=== PATIENT | female | born 1960 | race Caucasian/White ===

== ENCOUNTER 2017-11-16 13:48 | Observation (INO) | payer BC ==
[2017-11-16 14:10] LABS: BASOPHIL % 0.3 % (0.0-0.4); Basophil (Absolute #) 0.01 (0-0.4); Eosinophil % 2.2 % (0.00-5.0); Eosinophil (Absolute #) 0.07 (0-0.5); Granulocyte Absolute (ANC) 1.81 (1.4-6.9); Hematocrit 21.7 % (35-47); Lymphocyte (Absolute #) 0.91 (1.0-4.6); Lymphocytes % 29.2 % (24.0-44.0); Mean Cell Volume 76.1 fl (78-100); Mean Corpuscular Hemoglobin 22.1 pg (26-32); Mean Platelet Volume 9.3 fl (6-9.5); Monocyte (Absolute #) 0.32 (0.0-1.3); Monocytes % 10.3 % (0.0-12.0); Platelet Count 426 K/mm3 (150-450); Red Blood Count 2.85 M/mm3 (4.1-5.4); Red Cell Distribution Width 18.2 % (11.5-14.0); White Blood Count 3.1 K/mm3 (4.0-10.5)
[2017-11-16 14:14] LABS: Hemoglobin 6.3 gm/dl (12.0-16.0)
[2017-11-16] MEDS ORDERED: Sodium Chloride 0.9% 1000 ML 1,000 ML ONE (16:03)
[2017-11-16 16:27] LABS: ABO TYPING A; Antibody Screen NEGATIVE (NEGATIVE); RH TYPING NEGATIVE
[2017-11-16] MEDS ORDERED: MEDICATION INTERVENTION MC PRN (17:20)
[2017-11-16] MEDS ORDERED: ceLEXa 20 MG PO SCH (18:00)
[2017-11-16] MEDS: PROTONIX 40 MG IV IV SCH (19:05)
[2017-11-17 05:38] LABS: Hemoglobin 7.9 gm/dl (12.0-16.0)
[2017-11-17] MEDS ORDERED: SYNTHROID 112 MCG PO SCH (06:00)
[2017-11-17] MEDS ORDERED: Lactated Ringers 1,000 ML IV ONE (07:43)
--- NOTE | 2017-11-17 07:43 | HP ---
CHIEF COMPLAINT: Weakness, black tarry stools. HISTORY OF PRESENT ILLNESS: The patient is a 57 year-old white female who reports feeling bad, recently just being weak. She noticed on Thursday however that she became even more weak with passing of some black stools and by this morning she was wobbly and having to hold onto to things to get from point A to point B. The patient presented herself to the outpatient [facility] clinic and a CBC was done. The patient was found to have a hemoglobin of 6.3. She has been admitted to the hospital for transfusion and monitoring. PAST MEDICAL HISTORY: Significant recently taking ibuprofen for a wrist injury that she had four weeks ago. 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 She has been taking fairly large amounts of ibuprofen. PAST SURGICAL HISTORY: Gastric bypass. She had craniopharyngeal adenomas removed three different times. She has hypothyroid. She has depression for which she takes present medications. CURRENT MEDICATIONS: Includes citalopram 10 mg a day, estradiol/norethindrone acet once daily, Synthroid 112 mcg daily, ALLERGIES: NKDA. SOCIAL HISTORY: She is , nonsmoker, works at the hospital. The patient's son has significant problems with schizophrenia and seizure disorder which is a major source of her problems. PHYSICAL EXAMINATION: Revealed a moderately obese white female currently in no distress. HEENT: Normocephalic, atraumatic. Pupils equal round reactive to light. Extraocular movements intact. Oropharynx is pink and moist. NECK: Supple without lymphadenopathy, thyromegaly or JVD. CHEST: Clear to auscultation with good air movement bilaterally. HEART: Regular rate and rhythm without murmurs, rubs or gallops. ABDOMEN: Soft, nontender, nondistended without hepatosplenomegaly or palpable masses. EXTREMITIES: Without clubbing, cyanosis or edema. NEUROLOGIC: The patient is alert and oriented x3. No focal deficits were noted. LAB DATA AND TESTS: Thus far laboratory values have shown hypochromic microcytic indices with hemoglobin of 6.3. She has no other labs presently. ASSESSMENT: A patient with upper GI bleed. The plan is for EGD in the morning. She was placed on IV fluids with IV Protonix and she is getting transfused 2 units of packed red blood cells. She has been asked to not take ibuprofen any longer. We will continue her usual home medications. She can have a clear liquid diet tonight. Upon discharge the patient will be placed on iron as well and we will monitor her blood counts to be sure that she gets back to a normal range.
[2017-11-17] MEDS ORDERED: Lactated Ringers 1,000 ML IV SCH (07:45)
[2017-11-17 08:38] VITALS: PULSE 62
[2017-11-17] MEDS ORDERED: Sodium Chloride 0.9% 500 ML 500 ML IV ONE (09:39)
[2017-11-17] MEDS: PROTONIX 40 MG IV IV SCH (09:47)
[2017-11-17] MEDS ORDERED: NORETHINDRONE ACET PO SCH (10:00)
[2017-11-17] MEDS ORDERED: ESTRADIOL PO SCH (10:00)
--- NOTE | 2017-11-17 10:31 | OP ---
SURGERY DATE/TIME: 11/17/2017 0755 PREOPERATIVE DIAGNOSIS: Blood loss anemia. POSTOPERATIVE DIAGNOSIS: Normal upper endoscopy status post gastric bypass. PROCEDURE: Esophagogastroduodenoscopy. SURGEON: Dr. Leone. ANESTHESIA: Medications were given by the anesthesia department. BRIEF HISTORY: The patient is a 57 year old white female presenting now for endoscopic evaluation. The patient apparently had near syncopal episode and presented to the emergency room and was found to be profoundly anemic with hemoglobin 6.3. The patient reports she has been having black stools. She had been taking a fairly large amount of ibuprofen due to a wrist injury. The patient was felt the need to have endoscopic evaluation. She was given 2 units of blood. Hemoglobin was 7.9 prior to the procedure. The patient was appraised of the risks of the procedure including the risk of perforation, phlebitis, untoward reaction to medication, bleeding and missed lesions. The patient verbalized her understanding and desired to have the procedure performed. DESCRIPTION OF PROCEDURE: The patient was given the medications by the anesthesia department. She had continuous pulse oximetry, ECG monitoring, intermittent blood pressure monitoring and tidal CO2 monitoring during the examination. She was placed in the left lateral decubitus position. A bite block was placed and the flexible Olympus gastroscope was used to intubate the oropharynx. A view of the larynx was obtained and was normal. The scope was easily introduced in the esophagus which was normal throughout its length. There was no gastric remnant left that we could see. There appeared to be a pull up of the duodenum and jejunum to the lower portion of the esophagus. There appeared to be a loop also but we were able to inspect both ends with no evidence of any active bleeding nor evidence of stigmata of recent bleeding. No erosions. No ulcerations were noted. The scope was removed from the patient who tolerated the procedure well. She was sent back to the hospital [facility] in good condition.
[2017-11-17 11:48] VITALS: BP 130/64; O2SAT 98
[2017-11-17 16:23] LABS: Hematocrit 33.1 % (35-47)
[2017-11-17 16:28] LABS: Hemoglobin 10.4 gm/dl (12.0-16.0)
[2017-11-17] MEDS ORDERED: DIPRIVAN 200 MG/20 ML IV ONE (17:04)
[2017-11-17] MEDS ORDERED: Ketamine HCl 50 MG/ML IJ ONE (17:04)
[2017-11-17] MEDS ORDERED: ceLEXa 20 MG PO SCH (22:00)
== END 2017-11-17 17:05 | disposition home or self-care (01) ==
LOC: LAB 13:48 → MED SURG 14:33
PROVIDERS: ADMIT Family Medicine; ATTEND Family Medicine
PROC: 0DJ08ZZ Inspection of Upper Intestinal Tract, Via Natural or Artificial Opening Endoscopic (ICD-10-PCS; principal; 2017-11-17)
DX: D50.0 Iron deficiency anemia secondary to blood loss (chronic) (principal); K92.2 Gastrointestinal hemorrhage, unspecified; E03.9 Hypothyroidism, unspecified; Z98.84 Bariatric surgery status
CPT/HCPCS: 00731; 36415; 36430; 85014; 85018; 85025; 86850; 86900; 86901; 86922; G0378; J2704; P9016; A9270-GY

== ENCOUNTER 2017-11-24 05:46 | Day surgery (SDC) | payer BC ==
[2017-11-24] MEDS ORDERED: Ketamine HCl 50 MG/ML IV ONE (05:47)
[2017-11-24] MEDS ORDERED: DIPRIVAN 200 MG/20 ML IV ONE (05:47)
[2017-11-24] MEDS ORDERED: Lactated Ringers 1,000 ML IV SCH (06:30)
[2017-11-24 09:16] LABS: Hematocrit 36.5 % (35-47); Hemoglobin 11.3 gm/dl (12.0-16.0); Mean Cell Volume 82.2 fl (78-100); Mean Platelet Volume 9.1 fl (6-9.5); Platelet Count 242 K/mm3 (150-450); Red Blood Count 4.44 M/mm3 (4.1-5.4); Red Cell Distribution Width 19.6 % (11.5-14.0); White Blood Count 3.2 K/mm3 (4.0-10.5)
[2017-11-24 09:18] LABS: Mean Corpuscular Hemoglobin 25.4 pg (26-32)
[2017-11-24 10:26] VITALS: BP 129/80; PULSE 51; O2SAT 98
--- NOTE | 2017-11-24 11:17 | OP ---
SURGERY DATE/TIME: 11/24/2017 0800 PREOPERATIVE DIAGNOSIS: Blood loss anemia. POSTOPERATIVE DIAGNOSIS: Normal colon. PROCEDURE: Colonoscopy. SURGEON: Dr. Leone. ANESTHESIA: MAC. Medications given by anesthesia department. HISTORY: The patient is a 57 year-old white female who was having black tarry stools. She presented to the emergency room and was found to have a hemoglobin in the low 6's. She was transfused. She had an upper GI endoscopic performed which was essentially normal status post gastric bypass surgery. The patient was felt the need to have colonoscopic evaluation. She was appraised of the risks of the procedure including the risk of perforation, phlebitis, untoward reaction to medication, bleeding and missed lesions. The patient verbalized her understanding and desired to have the procedure performed. DESCRIPTION OF PROCEDURE: The patient was given the medications by the anesthesia department. She had continuous pulse oximetry, ECG monitoring, intermittent blood pressure monitoring and tidal CO2 monitoring during the examination. She was placed in the left lateral decubitus position. A digital rectal examination was performed and revealed normal anal sphincter tone and no masses. The flexible Olympus pediatric colonoscope was used to intubate the rectum. A view of the colon was developed sequentially to the cecum including a short distance into the terminal ileum. Upon insertion and withdrawal, including a retroflex view in the rectum, no mucosal lesions were encountered. The scope was removed from the patient who tolerated the procedure well and was sent back to OP recovery in good condition. The prep was noted to be good.
[2017-11-24] MEDS ORDERED: Lactated Ringers 1,000 ML IV ONE (12:39)
== END 2017-11-24 10:00 | disposition home or self-care (01) ==
LOC: SDC 05:46
PROVIDERS: ATTEND Family Medicine
PROC: 0DJD8ZZ Inspection of Lower Intestinal Tract, Via Natural or Artificial Opening Endoscopic (ICD-10-PCS; principal; 2017-11-24)
DX: D50.0 Iron deficiency anemia secondary to blood loss (chronic) (principal); Z98.84 Bariatric surgery status; Z79.899 Other long term (current) drug therapy
CPT/HCPCS: 00812; 36415; 85027; J2704

== ENCOUNTER 2018-09-08 18:36 | Emergency (ER) | payer BC ==
--- NOTE | 2018-09-08 19:38 | ERPHSYRPT ---
- History of Present Illness Time Seen by Provider: 09/08/18 19:21 Source: patient Exam Limitations: no limitations Patient Subjective Stated Complaint: Headache for about a week, hx of pitutary tumor Triage Nursing Assessment: Pt c/o of having a headache for over a week, hx of pitutary tumor, BP 146/89, no difficulties with strength, denies N&V, denies losing consciousness, left eye pain, painful to palpate, denies any other problems at this time Physician History: 58-year-old white female she arrives with complaint of left eye pain for a week she also states that she's felt congested she's had some tenderness in the frontal and maxillary sinuses especially on the left. She has no fevers no vomiting no diarrhea. Past medical history includes hypothyroidism, arthritis, depression, kidney stones, anemia. Patient did have a history of a pituitary adenoma which was resected in the past. Past medical history includes gastric bypass, pituitary adenoma, Timing/Duration: week(s) (one week) Severity: moderate Modifying Factors: Improves With: nothing Associated Symptoms: other (nasal congestion, left eye pain, tenderness in the left maxillary and frontal sinus), No nausea, No vomiting, No abdominal pain, No shortness of breath, No heartburn, No diaphoresis, No cough, No chills, No chest pain, No fever, No headaches, No loss of appetite, No malaise, No rash, No syncope, No seizure, No weakness Allergies/Adverse Reactions: nitrofurantoin [From Macrobid] Allergy (Verified 09/08/18 19:00) Penicillins Allergy (Verified 09/08/18 19:00) pentazocine [From Talwin] Allergy (Verified 09/08/18 19:00) silver nitrate Allergy (Verified 09/08/18 19:00) Home Medications: Citalopram Hydrobromide [Citalopram HBr] 10 mg PO DAILY 11/16/17 [History] Levothyroxine Sodium [Synthroid] 112 mcg PO 0600 11/16/17 [History] Omeprazole 20 MG [Prilosec 20 mg] 20 mg PO DAILY PRN 09/08/18 [History] - Review of Systems Constitutional: No Fever, No Chills Eyes: No Symptoms, Eye Pain (Left eye pain) Ears, Nose, & Throat: Nose Congestion, Other (tenderness in left maxillary and frontal sinus), No Ear Pain, No Ear Discharge, No Hearing Changes, No Tinnitus, No Nose Pain, No Nose Discharge, No Sinus Drainage, No Epistaxis, No Mouth Pain , No Mouth Swelling, No Loose Teeth, No Throat Pain, No Throat Swelling, No Hoarse, No Painful Swallowing, No Snoring, No Stridor Respiratory: No Cough, No Dyspnea Cardiac: No Chest Pain, No Edema, No Syncope Abdominal/Gastrointestinal: No Abdominal Pain, No Nausea, No Vomiting, No Diarrhea Genitourinary Symptoms: No Dysuria Musculoskeletal: No Back Pain, No Neck Pain Skin: No Rash Neurological: Other (tenderness left maxillary and frontal region), No Dizziness , No Focal Weakness, No Sensory Changes Psychological: No Symptoms Endocrine: No Symptoms All Other Systems: Reviewed and Negative - Past Medical History Pertinent Past Medical History: Yes Neurological History: No Pertinent History ENT History: No Pertinent History Cardiac History: Other Respiratory History: No Pertinent History Endocrine Medical History: Hypothyroidism Musculoskeletal History: Arthritis GI Medical History: No Pertinent History History: Other Psycho-Social History: Depression Female Reproductive Disorders: No Pertinent History Other Medical History: KIDNEY STONE, ANEMIA - Past Surgical History Past Surgical History: Yes Neuro Surgical History: No Pertinent History Cardiac: No Pertinent History Respiratory: No Pertinent History Gastrointestinal: Other Genitourinary: No Pertinent History Musculoskeletal: Orthopedic Surgery Female Surgical History: No Pertinent History Other Surgical History: GASTRIC BYPASS, 3 PITUITARY ADNOMA - Social History Smoking Status: Former smoker Exposure to second hand smoke: No Drug Use: none Patient Lives Alone: No - Female History Hx Now: No - Nursing Vital Signs Nursing Vital Signs: Initial Vital Signs Temperature 98.4 F 09/08/18 18:50 Pulse Rate 63 09/08/18 18:50 Blood Pressure 146/89 09/08/18 18:50 O2 Sat by Pulse Oximetry 100 09/08/18 18:50 Pain Scale Pain Intensity 3 - Physical Exam General Appearance: no apparent distress, alert Eye Exam: PERRL/EOMI, eyes nml inspection, other (fundi are unremarkable globes are soft) Ears, Nose, Throat Exam: TMs normal, moist mucous membranes, other (tenderness with percussion left frontal and maxillary sinuses), No TM abnormal (R), No TM abnormal (L) Neck Exam: normal inspection, non-tender, supple, full range of motion Respiratory Exam: normal breath sounds, lungs clear, No respiratory distress Cardiovascular Exam: regular rate/rhythm, normal heart sounds, normal peripheral pulses Gastrointestinal/Abdomen Exam: soft, normal bowel sounds, No tenderness, No mass Back Exam: normal inspection, normal range of motion, No CVA tenderness, No vertebral tenderness Extremity Exam: normal inspection, normal range of motion, pelvis stable Neurologic Exam: alert, oriented x 3, cooperative, enterprise application analyst II-XII nml as tested, normal mood/affect, nml cerebellar function, nml station & gait, sensation nml, No motor deficits Skin Exam: normal color, warm, dry, No rash SpO2 Interpretation: normal (100%) SpO2: 100 Oxygen Delivery: Room Air - Course Nursing assessment & vital signs reviewed: Yes Ordered Tests: Active Orders 24 hr Category Date Time Status Visual Acuity STAT Care 09/08/18 19:31 Active - Progress Progress: improved Progress Note: 09/08/18 19:35 58-year-old white female states that she's had some tenderness on her left eye for approximately a week no vision changes she does have some tenderness with percussion in the left frontal and maxillary region. On physical examination patient with demonstratable tenderness with percussion left frontal and maxillary sinuses eyes PERRLA EOMI fundi are unremarkable globes are soft. patient's conjunctiva are not inflameed, sclera are white, no foreign bodies. Patient with a sinusitis. Patient does have a history of pituitary adenoma however she is really not complaining of a severe headache it is more sinus pain and some left eye pain. Patient sees Dr. Woodard the clinical research physician in [facility] I have advised the patient to follow-up with Dr. Woodard tomorrow. For further workup of her eye Will obtain a vision exam on this patient. Will place patient on Zithromax. Patient states she does get these sinus infections from time to time she usually does well with Zithromax she does not want any pain medications. 09/08/18 19:40 patient's vision exam corrected, Both eyes 20/20. Left eye 20/20. Right eye 20/30. 09/08/18 19:41 - Departure Time of Disposition: 19:40 Departure Disposition: Home Clinical Impression: Left eye pain, History of pituitary adenoma Sinusitis Qualifiers: Sinusitis location: frontal Chronicity: acute Recurrence: not specified as recurrent Qualified Code(s): J01.10 - Acute frontal sinusitis, unspecified Condition: Fair Critical Care Time: No Referrals: ANURAG BENITEZ [Primary Care Provider] - Additional Instructions: Return home. Zithromax Z-GABRIEL as directed. Tylenol every 4 hours as needed for pain. Follow-up with Dr. Woodard (your clinical research physician) tomorrow call first thing in the morning to schedule an appointment. Return for acute distress or for severe symptoms Prescriptions: Azithromycin 250 mg [Zithromax 250 MG TABLET] 0 mg PO ZPACK #6 tablet
[2018-09-08 19:54] VITALS: BP 153/84; PULSE 59; O2SAT 99
== END 2018-09-08 20:05 | disposition home or self-care (01) ==
LOC: ED 18:36
DX: H57.12 Ocular pain, left eye (principal); J32.9 Chronic sinusitis, unspecified; Z86.39 Personal history of other endocrine, nutritional and metabolic disease
CPT/HCPCS: 99283

== ENCOUNTER 2019-03-02 08:20 | Observation (INO) | payer BC ==
[2019-03-02] MEDS ORDERED: Sodium Chloride 0.9% 1000 ML 1,000 ML IV STA (08:33)
[2019-03-02] MEDS ORDERED: Sodium Chloride 0.9% 1000 ML 1,000 ML ONE (08:45)
[2019-03-02 08:56] LABS: ALBUMIN 3.8 g/dL (3.5-5.0); ALKALINE PHOSPHATASE 61 U/L (38-126); BLOOD UREA NITROGEN 43 mg/dL (7-17); CHLORIDE 105 mmol/L (98-107); Carbon Dioxide 22 mmol/L (22-30); Creatinine 1 0.84 mg/dL (0.52-1.04); Glucose 93 mg/dL (74-106); Potassium 4.3 mmol/L (3.5-5.1); SGOT/AST 26 U/L (14-36); SGPT/ALT 18 U/L (0-35); SODIUM 138 mmol/L (137-145); Total Protein 6.4 g/dL (6.3-8.2)
[2019-03-02 09:04] LABS: Appearance CLEAR (CLEAR); Bacteria RARE /HPF (NEGATIVE); Bilirubin NEGATIVE (NEGATIVE); Blood NEGATIVE Ery/ul (0-5); Epithelial Cells RARE /HPF (FEW); Glucose NEGATIVE (NEGATIVE); Ketones NEGATIVE (NEGATIVE); Leukocyte Esterase MODERATE (NEGATIVE); Mucus SLIGHT /HPF (NEGATIVE); Nitrite NEGATIVE (NEGATIVE); Protein,Urine Dip NEGATIVE (Negative); RBC 0-2 /HPF (0-2); Specific Gravity 1.023 (1.005-1.025); Urobilinogen NEGATIVE mg/dL (0-1)
[2019-03-02 09:07] LABS: BASOPHIL % 0.4 % (0.0-0.4); Basophil (Absolute #) 0.02 (0-0.4); Eosinophil % 2.7 % (0.00-5.0); Eosinophil (Absolute #) 0.13 (0-0.5); Granulocyte Absolute (ANC) 3.07 (1.4-6.9); Hematocrit 34.1 % (35-47); Hemoglobin 10.9 gm/dl (12.0-16.0); Lymphocyte (Absolute #) 1.22 (1.0-4.6); Lymphocytes % 25.4 % (24.0-44.0); Mean Cell Volume 97.7 fl (78-100); Mean Corpuscular Hemoglobin 31.2 pg (26-32); Mean Platelet Volume 9.9 fl (6-9.5); Monocyte (Absolute #) 0.36 (0.0-1.3); Monocytes % 7.5 % (0.0-12.0); Platelet Count 297 K/mm3 (150-450); Red Blood Count 3.49 M/mm3 (4.1-5.4); Red Cell Distribution Width 12.8 % (11.5-14.0); White Blood Count 4.8 K/mm3 (4.0-10.5)
--- NOTE | 2019-03-02 09:41 | ERPHSYRPT ---
- History of Present Illness Historian: patient Exam Limitations: no limitations Patient Subjective Stated Complaint: Pt states "I passed 3 black tarry stools this morning." Triage Nursing Assessment: Pt presented alert and oriented X 3, skin pwd. PT ambulates with a hunched over gait, able to speak in clear full sentences. Pt in no apparent respiratory distress. Physician History: Pt is a 58 y/o female with h/o GI bleed, that presented to the ED with 3 BMs that were melanotic, this AM. Pt has some nausea, but no vomiting or abdominal pain. No F/C/S. No SOB or cough. No chest pain or palpitations. Timing/Duration: today Activities at Onset: none Pain Radiation: no radiation Severity of Pain-Max: none Severity of Pain-Current: none Modifying Factors: Improves With: nothing, other (Pt is using Naproxen for pain. ) Associated Symptoms: nausea Previous symptoms: same symptoms as today Allergies/Adverse Reactions: nitrofurantoin [From Macrobid] Allergy (Verified 09/08/18 19:00) Penicillins Allergy (Verified 09/08/18 19:00) pentazocine [From Talwin] Allergy (Verified 09/08/18 19:00) silver nitrate Allergy (Verified 09/08/18 19:00) Home Medications: Citalopram Hydrobromide [Citalopram HBr] 10 mg PO DAILY 11/16/17 [History] Levothyroxine Sodium [Synthroid] 112 mcg PO 0600 11/16/17 [History] Omeprazole 20 MG [Prilosec 20 mg] 20 mg PO DAILY PRN 09/08/18 [History] Hx Tetanus, Diphtheria Vaccination/Date Given: No Hx Influenza Vaccination/Date Given: No Hx Pneumococcal Vaccination/Date Given: No Immunizations Up to Date: Yes - Review of Systems Constitutional: No Fever, No Chills Eyes: No Symptoms Ears, Nose, & Throat: No Symptoms Respiratory: No Cough, No Dyspnea Cardiac: No Chest Pain, No Edema, No Syncope Abdominal/Gastrointestinal: Melena, No Abdominal Pain, No Nausea, No Vomiting, No Diarrhea Genitourinary Symptoms: No Dysuria Musculoskeletal: No Back Pain, No Neck Pain Neurological: No Dizziness, No Focal Weakness, No Sensory Changes Psychological: No Symptoms - Past Medical History Pertinent Past Medical History: Yes Neurological History: No Pertinent History ENT History: No Pertinent History Cardiac History: Other Respiratory History: No Pertinent History Endocrine Medical History: Hypothyroidism Musculoskeletal History: Arthritis GI Medical History: No Pertinent History History: Other Psycho-Social History: Depression Female Reproductive Disorders: No Pertinent History Other Medical History: KIDNEY STONE, ANEMIA - Past Surgical History Past Surgical History: Yes Neuro Surgical History: No Pertinent History Cardiac: No Pertinent History Respiratory: No Pertinent History Gastrointestinal: Other Genitourinary: No Pertinent History Musculoskeletal: Orthopedic Surgery Female Surgical History: No Pertinent History Other Surgical History: GASTRIC BYPASS, 3 PITUITARY ADNOMA - Social History Smoking Status: Former smoker Exposure to second hand smoke: No Drug Use: none Patient Lives Alone: No - Female History Hx Now: No - Nursing Vital Signs Nursing Vital Signs: Initial Vital Signs Temperature 97.7 F 03/02/19 08:25 Pulse Rate 74 03/02/19 08:25 Respiratory Rate 16 03/02/19 08:25 Blood Pressure 115/69 03/02/19 08:25 O2 Sat by Pulse Oximetry 98 03/02/19 08:25 Pain Scale Pain Intensity 0 - Physical Exam General Appearance: no apparent distress, alert Eye Exam: PERRL/EOMI, eyes nml inspection Ears, Nose, Throat Exam: normal ENT inspection, pharynx normal, moist mucous membranes Neck Exam: normal inspection, non-tender, supple, full range of motion Respiratory Exam: normal breath sounds, lungs clear, No respiratory distress Cardiovascular Exam: regular rate/rhythm, normal heart sounds Gastrointestinal/Abdomen Exam: soft, No tenderness, No mass Back Exam: normal inspection, normal range of motion, No CVA tenderness, No vertebral tenderness Extremity Exam: normal inspection, normal range of motion, pelvis stable Neurologic Exam: alert, oriented x 3, cooperative, normal mood/affect, nml cerebellar function, sensation nml, No motor deficits SpO2: 98 - Course Nursing assessment & vital signs reviewed: Yes Ordered Tests: Active Orders 24 hr Category Date Time Status CBC W DIFF Stat Lab 03/02/19 08:43 Completed CMP Stat Lab 03/02/19 08:43 Completed Occult Blood, Other Screening Stat Lab 03/02/19 08:38 Completed UA W/RFX UR CULTURE Stat Lab 03/02/19 08:38 Completed Medication Summary Discontinued Medications Generic Name Dose Route Start Last Admin Trade Name Freq PRN Reason Stop Dose Admin Sodium Chloride 1,000 mls @ 999 mls/hr 03/02/19 08:33 03/02/19 08:46 Sodium Chloride 0.9% 1000 Ml IV 03/02/19 09:33 999 mls/hr .Q1H1M STA Administration Sodium Chloride Confirm 03/02/19 08:45 Sodium Chloride 0.9% 1000 Ml Administered 03/02/19 08:46 Dose 1,000 mls @ ud .ROUTE .STK-MED ONE Lab/Rad Data: Laboratory Result Diagrams 03/02/19 08:43 03/02/19 08:43 Laboratory Results 03/02/19 03/02/19 03/02/19 Range/Units 08:43 08:43 08:38 WBC 4.8 (4.0-10.5) K/mm3 RBC 3.49 L (4.1-5.4) M/mm3 Hgb 10.9 L (12.0-16.0) gm/dl Hct 34.1 L (35-47) % MCV 97.7 (78-100) fl MCH 31.2 (26-32) pg MCHC 32.0 (32-36) g/dl RDW 12.8 (11.5-14.0) % Plt Count 297 (150-450) K/mm3 MPV 9.9 H (6-9.5) fl Gran % 64.0 (36.0-66.0) % Eos # (Auto) 0.13 (0-0.5) Absolute Lymphs (auto) 1.22 (1.0-4.6) Absolute Monos (auto) 0.36 (0.0-1.3) Lymphocytes % 25.4 (24.0-44.0) % Monocytes % 7.5 (0.0-12.0) % Eosinophils % 2.7 (0.00-5.0) % Basophils % 0.4 (0.0-0.4) % Absolute Granulocytes 3.07 (1.4-6.9) Basophils # 0.02 (0-0.4) Sodium 138 (137-145) mmol/L Potassium 4.3 (3.5-5.1) mmol/L Chloride 105 (98-107) mmol/L Carbon Dioxide 22 (22-30) mmol/L Anion Gap 16.0 H (5-15) MEQ/L BUN 43 H (7-17) mg/dL Creatinine 0.84 (0.52-1.04) mg/dL Estimated GFR > 60.0 ML/MIN Glucose 93 (74-106) mg/dL Calcium 9.0 (8.4-10.2) mg/dL Total Bilirubin 0.40 (0.2-1.3) mg/dL AST 26 (14-36) U/L ALT 18 (0-35) U/L Alkaline Phosphatase 61 (38-126) U/L Serum Total Protein 6.4 (6.3-8.2) g/dL Albumin 3.8 (3.5-5.0) g/dL Urine Color YELLOW (YELLOW) Urine Appearance CLEAR (CLEAR) Urine pH 5.0 (5-6) Ur Specific [place] 1.023 (1.005-1.025) Urine Protein NEGATIVE (Negative) Urine Ketones NEGATIVE (NEGATIVE) Urine Blood NEGATIVE (0-5) Patel/ul Urine Nitrite NEGATIVE (NEGATIVE) Urine Bilirubin NEGATIVE (NEGATIVE) Urine Urobilinogen NEGATIVE (0-1) mg/dL Ur Leukocyte Esterase MODERATE (NEGATIVE) Urine WBC (Auto) 11-15 (0-5) /HPF Urine RBC (Auto) 0-2 (0-2) /HPF U Epithel Cells (Auto) RARE (FEW) /HPF Urine Bacteria (Auto) RARE (NEGATIVE) /HPF Urine Mucus (Auto) SLIGHT (NEGATIVE) /HPF Urine Culture Reflexed NO (NO) Urine Glucose NEGATIVE (NEGATIVE) mg/dL Stool Occult Blood (Negative) 03/02/19 Range/Units 08:38 WBC (4.0-10.5) K/mm3 RBC (4.1-5.4) M/mm3 Hgb (12.0-16.0) gm/dl Hct (35-47) % MCV (78-100) fl MCH (26-32) pg MCHC (32-36) g/dl RDW (11.5-14.0) % Plt Count (150-450) K/mm3 MPV (6-9.5) fl Gran % (36.0-66.0) % Eos # (Auto) (0-0.5) Absolute Lymphs (auto) (1.0-4.6) Absolute Monos (auto) (0.0-1.3) Lymphocytes % (24.0-44.0) % Monocytes % (0.0-12.0) % Eosinophils % (0.00-5.0) % Basophils % (0.0-0.4) % Absolute Granulocytes (1.4-6.9) Basophils # (0-0.4) Sodium (137-145) mmol/L Potassium (3.5-5.1) mmol/L Chloride (98-107) mmol/L Carbon Dioxide (22-30) mmol/L Anion Gap (5-15) MEQ/L BUN (7-17) mg/dL Creatinine (0.52-1.04) mg/dL Estimated GFR ML/MIN Glucose (74-106) mg/dL Calcium (8.4-10.2) mg/dL Total Bilirubin (0.2-1.3) mg/dL AST (14-36) U/L ALT (0-35) U/L Alkaline Phosphatase (38-126) U/L Serum Total Protein (6.3-8.2) g/dL Albumin (3.5-5.0) g/dL Urine Color (YELLOW) Urine Appearance (CLEAR) Urine pH (5-6) Ur Specific [place] (1.005-1.025) Urine Protein (Negative) Urine Ketones (NEGATIVE) Urine Blood (0-5) Patel/ul Urine Nitrite (NEGATIVE) Urine Bilirubin (NEGATIVE) Urine Urobilinogen (0-1) mg/dL Ur Leukocyte Esterase (NEGATIVE) Urine WBC (Auto) (0-5) /HPF Urine RBC (Auto) (0-2) /HPF U Epithel Cells (Auto) (FEW) /HPF Urine Bacteria (Auto) (NEGATIVE) /HPF Urine Mucus (Auto) (NEGATIVE) /HPF Urine Culture Reflexed (NO) Urine Glucose (NEGATIVE) mg/dL Stool Occult Blood POSITIVE A (Negative) - Progress Progress: unchanged Progress Note: 03/02/19 09:39 Pt had labs done, and stool checked for heme. Pt had elevated BUN, and stool positive for heme. Her Hgb was reduced 10 10.9. Pt states, she is using Naproxen for pain. Secondary to GI bleed, Dr Ruiz was contacted, and she accepted the pt for obs, and to be scopped by Dr Leone. Will see patient in: hospital (observation) - Departure Departure Disposition: Observation Clinical Impression: GI bleed due to NSAIDs Condition: Stable Critical Care Time: No Referrals: ANURAG LEONE [Primary Care Provider] -
[2019-03-02] MEDS ORDERED: Zofran 4 MG/2 ML VIAL IV PRN (09:42)
[2019-03-02] MEDS: PROTONIX 40 MG IV*** 80 MG in Sodium Chloride 0.9% 500 ML 500 ML IV SCH ×2 (11:04→20:56)
[2019-03-02] MEDS: Sodium Chloride 0.9% 1000 ML 1,000 ML IV SCH ×2 (13:36→23:43)
--- NOTE | 2019-03-02 14:29 | PCM.NOTE ---
Date and Time: 03/02/19 141 Subjective Assessment: Patient is a 58 year old female with a history of Bariatric Surgery 2013 who presented to ER with c/o 3 black tarry stools this morning. She was feeling fine yesterday .Enjoyed a nice dinner out last night .Denies indigestion or abdominal pain or nausea or vomiting or diarrhea or constipation. When she got up for work this morning, she felt weak and dizzy. She had 3 black tarry stools between 6am and 7am today. She had been taking Naprosyn for mid back pain all week,attributes the pain to her work chair pillow. She has been off her Omeprazole . Hx of GI bleed requiring tansfusion about a year ago. Patient states upper and lower scopes by Dr Leone at that time did not find a bleed . Last year before she had the GI bleed she had been on Advil for wrist pain . Objective Exam Neurologic Exam: alert, oriented x 3 Skin Exam: warm, dry, pale (no diaphoresis) Eye Exam: PERRL, EOMI Respiratory Exam: normal breath sounds, lungs clear Cardiovascular Exam: regular rate/rhythm (no murmur) Gastrointestinal/Abdomen Exam: soft (increased bowel sounds LLQ,nontender no guarding no rebound) Extremity Exam: normal inspection (no edema) OBJECTIVE DATA Vital Signs: Vital Signs - 24 hr Temp Pulse Resp BP Pulse Ox 03/02/19 12:00 67 18 117/61 98 03/02/19 11:54 98.0 F 67 18 117/61 98 03/02/19 09:41 98 03/02/19 09:34 97.6 F 58 L 16 104/66 98 03/02/19 08:25 97.7 F 74 16 115/69 98 Pain Assessment - Last Documented Pain Intensity 0 Pain Scale Used 0-10 Pain Scale Intake and Output: Intake & Output 02/28/19 03/01/19 03/02/19 03/03/19 11:59 11:59 11:59 11:59 Weight 86.6 kg Lab Results: Lab Results-Last 24 Hours 03/02/19 03/02/19 03/02/19 Range/Units 08:38 08:38 08:43 WBC 4.8 (4.0-10.5) K/mm3 RBC 3.49 L (4.1-5.4) M/mm3 Hgb 10.9 L (12.0-16.0) gm/dl Hct 34.1 L (35-47) % MCV 97.7 (78-100) fl MCH 31.2 (26-32) pg MCHC 32.0 (32-36) g/dl RDW 12.8 (11.5-14.0) % Plt Count 297 (150-450) K/mm3 MPV 9.9 H (6-9.5) fl Gran % 64.0 (36.0-66.0) % Eos # (Auto) 0.13 (0-0.5) Absolute Lymphs (auto) 1.22 (1.0-4.6) Absolute Monos (auto) 0.36 (0.0-1.3) Lymphocytes % 25.4 (24.0-44.0) % Monocytes % 7.5 (0.0-12.0) % Eosinophils % 2.7 (0.00-5.0) % Basophils % 0.4 (0.0-0.4) % Absolute Granulocytes 3.07 (1.4-6.9) Basophils # 0.02 (0-0.4) Sodium (137-145) mmol/L Potassium (3.5-5.1) mmol/L Chloride (98-107) mmol/L Carbon Dioxide (22-30) mmol/L Anion Gap (5-15) MEQ/L BUN (7-17) mg/dL Creatinine (0.52-1.04) mg/dL Estimated GFR ML/MIN Glucose (74-106) mg/dL Calcium (8.4-10.2) mg/dL Total Bilirubin (0.2-1.3) mg/dL AST (14-36) U/L ALT (0-35) U/L Alkaline Phosphatase (38-126) U/L Serum Total Protein (6.3-8.2) g/dL Albumin (3.5-5.0) g/dL Urine Color YELLOW (YELLOW) Urine Appearance CLEAR (CLEAR) Urine pH 5.0 (5-6) Ur Specific [place] 1.023 (1.005-1.025) Urine Protein NEGATIVE (Negative) Urine Ketones NEGATIVE (NEGATIVE) Urine Blood NEGATIVE (0-5) Patel/ul Urine Nitrite NEGATIVE (NEGATIVE) Urine Bilirubin NEGATIVE (NEGATIVE) Urine Urobilinogen NEGATIVE (0-1) mg/dL Ur Leukocyte Esterase MODERATE (NEGATIVE) Urine WBC (Auto) 11-15 (0-5) /HPF Urine RBC (Auto) 0-2 (0-2) /HPF U Epithel Cells (Auto) RARE (FEW) /HPF Urine Bacteria (Auto) RARE (NEGATIVE) /HPF Urine Mucus (Auto) SLIGHT (NEGATIVE) /HPF Urine Culture Reflexed NO (NO) Urine Glucose NEGATIVE (NEGATIVE) mg/dL Stool Occult Blood POSITIVE A (Negative) 03/02/19 Range/Units 08:43 WBC (4.0-10.5) K/mm3 RBC (4.1-5.4) M/mm3 Hgb (12.0-16.0) gm/dl Hct (35-47) % MCV (78-100) fl MCH (26-32) pg MCHC (32-36) g/dl RDW (11.5-14.0) % Plt Count (150-450) K/mm3 MPV (6-9.5) fl Gran % (36.0-66.0) % Eos # (Auto) (0-0.5) Absolute Lymphs (auto) (1.0-4.6) Absolute Monos (auto) (0.0-1.3) Lymphocytes % (24.0-44.0) % Monocytes % (0.0-12.0) % Eosinophils % (0.00-5.0) % Basophils % (0.0-0.4) % Absolute Granulocytes (1.4-6.9) Basophils # (0-0.4) Sodium 138 (137-145) mmol/L Potassium 4.3 (3.5-5.1) mmol/L Chloride 105 (98-107) mmol/L Carbon Dioxide 22 (22-30) mmol/L Anion Gap 16.0 H (5-15) MEQ/L BUN 43 H (7-17) mg/dL Creatinine 0.84 (0.52-1.04) mg/dL Estimated GFR > 60.0 ML/MIN Glucose 93 (74-106) mg/dL Calcium 9.0 (8.4-10.2) mg/dL Total Bilirubin 0.40 (0.2-1.3) mg/dL AST 26 (14-36) U/L ALT 18 (0-35) U/L Alkaline Phosphatase 61 (38-126) U/L Serum Total Protein 6.4 (6.3-8.2) g/dL Albumin 3.8 (3.5-5.0) g/dL Urine Color (YELLOW) Urine Appearance (CLEAR) Urine pH (5-6) Ur Specific [place] (1.005-1.025) Urine Protein (Negative) Urine Ketones (NEGATIVE) Urine Blood (0-5) Patel/ul Urine Nitrite (NEGATIVE) Urine Bilirubin (NEGATIVE) Urine Urobilinogen (0-1) mg/dL Ur Leukocyte Esterase (NEGATIVE) Urine WBC (Auto) (0-5) /HPF Urine RBC (Auto) (0-2) /HPF U Epithel Cells (Auto) (FEW) /HPF Urine Bacteria (Auto) (NEGATIVE) /HPF Urine Mucus (Auto) (NEGATIVE) /HPF Urine Culture Reflexed (NO) Urine Glucose (NEGATIVE) mg/dL Stool Occult Blood (Negative) Assessment/Plan (1) Acute upper GI bleeding Current Visit: Yes Status: Acute Assessment & Plan: Hgb Oct 2018 was 13.4, on admission = 10.9 ,4pm today = 8.7 . Type and cross 2 units ,retest H/H 6pm and 8pm. NPO for probable EGD in AM. Discussed with PCP Dr Leone Code(s): K92.2 - GASTROINTESTINAL HEMORRHAGE, UNSPECIFIED (2) GI bleed due to NSAIDs Current Visit: Yes Status: Acute Code(s): K92.2 - GASTROINTESTINAL HEMORRHAGE, UNSPECIFIED; T39.395A - ADVERSE EFFECT OF NONSTEROIDAL ANTI- INFLAMMATORY DRUGS, INIT (3) Anemia Current Visit: No Status: Acute Code(s): D64.9 - ANEMIA, UNSPECIFIED
[2019-03-02 16:26] LABS: Hematocrit 26.7 % (35-47); Hemoglobin 8.7 gm/dl (12.0-16.0)
[2019-03-02 16:49] LABS: INR 1.1 (0.8-3.0); PROTIME 12.8 SECONDS (9.95-12.35)
[2019-03-02 16:51] LABS: PTT 27.3 SECONDS (25.3-37.0)
[2019-03-02 18:18] LABS: Hematocrit 27.5 % (35-47)
[2019-03-02] MEDS ORDERED: Cyanocobalamin B-12 1000 MCG/ML IM ONE (18:27)
[2019-03-02 19:21] LABS: ABO TYPING A; Antibody Screen NEGATIVE (NEGATIVE); RH TYPING NEGATIVE
[2019-03-02 19:26] LABS: CROSS MATCH (PRBC) COMPATIBLE (COMPATIBLE)
[2019-03-02 20:39] LABS: Hematocrit 25.7 % (35-47); Hemoglobin 8.4 gm/dl (12.0-16.0)
[2019-03-02] MEDS ORDERED: BENADRYL 25 MG CAPSULE PO PRN (21:19)
[2019-03-02] MEDS ORDERED: Sodium Chloride 0.9% 500 ML 500 ML IV ONE (21:27)
[2019-03-02] MEDS: Sodium Chloride 0.9% 500 ML 500 ML IV SCH (22:00)
[2019-03-02] MEDS ORDERED: ceLEXa 20 MG PO SCH (22:00)
[2019-03-03 02:50] LABS: Hematocrit 27.3 % (35-47); Hemoglobin 9.1 gm/dl (12.0-16.0)
[2019-03-03] MEDS ORDERED: Sodium Chloride 0.9% 500 ML 500 ML IV ONE ×2 (03:04→09:36)
[2019-03-03] MEDS: Sodium Chloride 0.9% 500 ML 500 ML IV SCH (03:10)
[2019-03-03] MEDS ORDERED: SYNTHROID 112 MCG PO SCH (06:00)
[2019-03-03 06:45] LABS: BASOPHIL % 0.6 % (0.0-0.4); Basophil (Absolute #) 0.02 (0-0.4); Eosinophil % 3.1 % (0.00-5.0); Granulocyte Absolute (ANC) 1.76 (1.4-6.9); Granulocytes % 55.4 % (36.0-66.0); Hemoglobin 10.3 gm/dl (12.0-16.0); Lymphocyte (Absolute #) 1.03 (1.0-4.6); Lymphocytes % 32.4 % (24.0-44.0); Mean Cell Volume 94.2 fl (78-100); Mean Corpuscular Hemoglobin 31.3 pg (26-32); Mean Corpuscular Hgb Concent. 33.2 g/dl (32-36); Mean Platelet Volume 9.1 fl (6-9.5); Monocyte (Absolute #) 0.27 (0.0-1.3); Monocytes % 8.5 % (0.0-12.0); Platelet Count 190 K/mm3 (150-450); Red Blood Count 3.29 M/mm3 (4.1-5.4); Red Cell Distribution Width 13.3 % (11.5-14.0); White Blood Count 3.2 K/mm3 (4.0-10.5)
[2019-03-03 07:02] LABS: ALBUMIN 2.6 g/dL (3.5-5.0); ALKALINE PHOSPHATASE 47 U/L (38-126); BLOOD UREA NITROGEN 24 mg/dL (7-17); CHLORIDE 112 mmol/L (98-107); Calcium 8.2 mg/dL (8.4-10.2); Carbon Dioxide 20 mmol/L (22-30); Creatinine 1 0.73 mg/dL (0.52-1.04); Glucose 78 mg/dL (74-106); Potassium 4.2 mmol/L (3.5-5.1); SGOT/AST 21 U/L (14-36); SGPT/ALT 14 U/L (0-35); SODIUM 138 mmol/L (137-145)
[2019-03-03] MEDS: PROTONIX 40 MG IV*** 80 MG in Sodium Chloride 0.9% 500 ML 500 ML IV SCH (07:59)
[2019-03-03] MEDS ORDERED: Sodium Chloride 0.9% 1000 ML 1,000 ML IV SCH (09:45)
[2019-03-03 13:29] VITALS: BP 100/58; PULSE 58; O2SAT 97
--- NOTE | 2019-03-03 13:45 | OP ---
SURGERY DATE/TIME: 03/03/2019 1231 PREOPERATIVE DIAGNOSIS: Abdomen pain, black tarry stools. POSTOPERATIVE DIAGNOSIS: Abdomen pain, black tarry stools. PROCEDURE: EGD. SURGEON: Anton Serrano M.D. ANESTHESIA: IVS. COMPLICATIONS: None. CONDITION: Stable. INDICATION: The patient had an episode about a year ago, had a scope about a year ago that was satisfactory. She has had gastric bypass. This is her second episode. She had anti-inflammatory last time and she had anti-inflammatory this time. Her hemoglobin dropped down to 8 and is up to 10 now. DESCRIPTION OF PROCEDURE: She is taken to endoscopy. IV sedation provided. Oximetry kept over 90% and comfort level was excellent. Time out performed. Pharyngoesophageal junction normal. Esophagus normal down to gastroesophageal junction. A 2 cm rim of esophagitis grade 2 over 3. No hiatal hernia. The gastric remnant was very small about 50 cc. The scope was lined in which was only 1 inch and there was nothing. The scope was placed about 20 inches down the efferent limb and there were no signs of any acute bleeding or bleeding site. Scope withdrawn back up to the anastomosis. The gastrojejunal anastomosis was normal with no marginal ulcer. Scope withdrawn. Findings discussed with the . The patient tolerated the procedure satisfactorily. It is probably related to the anti-inflammatory probably farther down in the belly. If she continues to have episodes of bleeding she will need a PillCam or a bleeding scan.
--- NOTE | 2019-03-03 15:19 | PCM.DCORD ---
- Discharge Discharge Date: 03/03/19 Prescriptions: New Omeprazole 20 mg PO DAILY #30 capsule. Continue Levothyroxine Sodium [Synthroid] 112 mcg PO 0600 Citalopram Hydrobromide [Citalopram HBr] 10 mg PO HS Instructions: Gastrointestinal Bleeding, Acid Reflux (Gastroesophageal Reflux Disease), Adult (DC) Follow up with: ANURAG BENITEZ [Primary Care Provider] - 03/10/19 10:00 am Forms: Discharge Instructions
[2019-03-03] MEDS ORDERED: VERSED 5 MG/5 ML IV ONE (15:34)
[2019-03-03] MEDS ORDERED: DEMEROL 50 MG SDV IV ONE ×2 (15:34)
[2019-03-04] MEDS ORDERED: SYNTHROID 88 MCG PO SCH (10:00)
== END 2019-03-03 15:35 | disposition home or self-care (01) ==
LOC: ED 08:20 → MED SURG 10:17 → ICU 17:55
PROVIDERS: ADMIT Family Medicine; ATTEND Family Medicine
DX: K92.2 Gastrointestinal hemorrhage, unspecified (principal); K20.9 Esophagitis, unspecified; R10.9 Unspecified abdominal pain; D64.9 Anemia, unspecified; T39.395A Adverse effect of other nonsteroidal anti-inflammatory drugs [NSAID], initial encounter; Z98.84 Bariatric surgery status; M54.5 Low back pain; Z79.899 Other long term (current) drug therapy
CPT/HCPCS: 36415; 36430; 80053; 81001; 82272; 82607; 84443; 84597; 85014; 85018; 85025; 85610; 85730; 86850; 86900; 86901; 86922; 93268; 96360; 96374; 99285; J2175; J2250; J3420; P9016; A9270-GY; G0378